=== PATIENT | male | born 1950 | race Caucasian/White ===

== ENCOUNTER 2022-03-18 13:56 | Outpatient (CLI) | payer MEDICARE, SELFPAY ==
--- NOTE | ~2022-03-18 | US_ITS ---
US arterial ankle brachial ind INDICATION: Peripheral vascular disease TECHNIQUE: Segmental pressures and plethysmographic and Doppler waveforms of the brachial and lower e xtremity arteries were obtained. COMPARISON: None. FINDINGS: Right and left brachial artery pressures of 157 mm Hg and 148 mm Hg, respectively, are concordant (no rmal difference <= 30 mmHg). The right ankle-brachial index (SIOBHAN) is 1.04 (normal >= 0.9-1.0). The right great toe-brachial index (TBI) is 0.85 (normal >= 0.60). The left SIOBHAN is 1.02. The left TBI is 0.99. IMPRESSION: 1. Normal ankle-brachial indices. Reviewed, dictated and finalized at location A.
== END 2022-03-18 13:57 | disposition home or self-care (01) ==
PROVIDERS: PCP Physician Assistant; Visit Provider Physician Assistant
DX: I73.9 Peripheral vascular disease, unspecified (principal)
CPT/HCPCS: 93922

== ENCOUNTER 2023-03-10 10:57 | Outpatient (CLI) | payer MEDICARE, SELFPAY ==
--- NOTE | ~2023-03-10 | XR_ITS ---
Left Knee Technique: AP, lateral, and sunrise views were obtained. Clinical History: Pain Findings: No fracture or dislocation is seen. Osseous alignment is anatomic. There is mild tricompart mental degenerative change. Soft tissues are unremarkable. No joint effusion is seen. Impression: Mild tricompartmental degenerative change. Reviewed, dictated and finalized at [facility]. Impression: Mild tricompartmental degenerative change.
--- NOTE | ~2023-03-10 | XR_ITS ---
Right Knee Technique: AP, lateral, and sunrise views were obtained. Clinical History: Osteoarthritis Findings: No fracture or dislocation is seen. Osseous alignment is anatomic. There is mild to moderat e tricompartmental degenerative spurring. Soft tissues are unremarkable. No joint effusion is seen. Impression: Mild to moderate tricompartmental degenerative change. Reviewed, dictated and finalized at location . Impression: Mild to moderate tricompartmental degenerative change.
== END 2023-03-10 10:58 | disposition home or self-care (01) ==
PROVIDERS: PCP Physician Assistant; Visit Provider Physician Assistant
DX: M25.662 Stiffness of left knee, not elsewhere classified (principal); M17.11 Unilateral primary osteoarthritis, right knee
CPT/HCPCS: 73562

== ENCOUNTER 2023-04-06 08:39 | Outpatient (CLI) | payer MEDICARE, SELFPAY | END 2023-04-06 08:40 | disposition home or self-care (01) | LOC: ANHAUDIO 08:40 | PROVIDERS: PCP Physician Assistant; Visit Provider Physician Assistant | DX: H90.3 Sensorineural hearing loss, bilateral (principal) | CPT/HCPCS: 92557; 92567 ==

== ENCOUNTER 2024-02-09 20:49 | Emergency (ER) | payer MEDICARE, SELFPAY ==
--- NOTE | ~2024-02-09 | XR_ITS ---
XR chest 1V portable 02/09/2024 21:15 Indication: Weakness and dyspnea Procedure: AP portable chest Comparison: No prior studies for comparison. Findings: Heart size normal. Patchy bilateral infiltrates. No significant effusion, edema or pneumoth orax. No acute osseous abnormality. Impression: 1: Patchy bilateral infiltrates, suspicious for pneumonia. Reviewed, dictated and finalized at location A. Impression: 1: Patchy bilateral infiltrates, suspicious for pneumonia.
--- NOTE | ~2024-02-09 | CT_ITS ---
EXAMINATION: CT BRAIN W/O DATE: 02/09/2024 21:34 INDICATION: Syncope TECHNIQUE: Computed tomography (CT) of the head was performed without intravenous contrast. The dose- length product was 681.00 mGy-cm. Automated exposure control and iterative reconstruction technique w ere employed. COMPARISON: No prior studies for comparison. FINDINGS: Generalized atrophy. There are scattered mild periventricular and subcortical white matter changes, most likely related to small vessel ischemic disease (microangiopathy). There is intracrania l atherosclerosis. No ventriculomegaly or midline shift. Midline sagittal images demonstrate a normal corpus callosum, c raniovertebral junction and sella turcica. Basilar cisterns are patent. Paranasal sinuses and mastoids are pneumatized. No depressed skull fractures. IMPRESSION: 1. No acute intracranial abnormality. Reviewed, dictated and finalized at location A.
[2024-02-09 20:50] VITALS: BP 102/72; PULSE 101; RESP 22; TEMP 36.4; O2SAT 95
[2024-02-09 20:55] VITALS: BP 102/72; PULSE 101; RESP 14; O2SAT 95
[2024-02-09 21:01] VITALS: BP 138/77; PULSE 96
[2024-02-09] MEDS: SODIUM CHLORIDE 0.9% IV 1,000 ML 999 ML IV CONT ×2 (21:10→22:25)
[2024-02-09 21:12] LABS: Basophils Absolute Auto 0.1 K/mm3 (0.0-0.1); Basophils Percent Auto 0.5 % (0.2-1.2); Eosinophils Absolute Auto 0.1 K/mm3 (0-0.3); Eosinophils Percent Auto 1.1 % (0-4.4); Hematocrit 44.1 % (42.0-52.0); Hemoglobin 14.6 g/dL (14.0-18.0); Immature Granulocyte Absolute 0.02 K/mm3 (0.00-0.031); Immature Granulocyte Percent A 0.2 % (0-0.5); Lymphocytes Absolute Auto 1.82 K/mm3 (0.9-3.2); Lymphocytes Percent Auto 18.7 % (18.3-44.2); Mean Corpuscular HGB Conc 33.1 g/dl (32-36); Mean Corpuscular Hemoglobin 33.2 pg (26-34); Mean Corpuscular Volume 100.2 fl (80-100); Mean Platelet Volume 10.5 fl (7.4-10.4); Monocytes Absolute Auto 0.7 K/mm3 (0.1-0.6); Monocytes Percent Auto 7.1 % (2.6-8.5); Neutrophils Percent Auto 72.4 % (45.5-73.1); Platelet Count Result 177 k/mm3 (150-375); Red Cell Distribution Width 12.5 % (11.5-14.5); White Blood Count 9.7 K/mm3 (4.5-10.0)
[2024-02-09 21:22] LABS: Lactic Acid Reflex 1.2 mmol/L (0.7-2.0)
[2024-02-09 21:23] LABS: Alanine Aminotransferase 28 U/L (6-50); Alkaline Phosphatase 78 U/L (38-126); Anion Gap 4 mmol/L (4-12); Aspartate Amino Transferase 31 U/L (17-59); Bilirubin,Total 0.5 mg/dL (0.2-1.3); Blood Urea Nitrogen 24 mg/dL (9-20); Calcium 9.2 mg/dL (8.4-10.2); Carbon Dioxide 29 mmol/L (22-30); Chloride 103 mmol/L (98-107); Estimated CRCL calculation 74 ml/min; Estimated Glomerular Filt Rate > 60; Glucose 183 mg/dL (65-110); Magnesium 1.9 mg/dL (1.6-2.3); Potassium 3.8 mmol/L (3.4-5.0); Sodium 136 mmol/L (137-145)
[2024-02-09 21:24] LABS: Prothrombin Time 13.1 Seconds (11.1-14.7)
[2024-02-09 21:25] LABS: Partial Thromboplastin Time 25.2 Seconds (22.3-36.8)
[2024-02-09 21:35] LABS: Troponin I < 0.012 ng/mL (0.000-0.034)
[2024-02-09 22:05] VITALS: BP 139/69; PULSE 94
[2024-02-09 22:06] VITALS: BP 139/71; PULSE 100
[2024-02-09 23:30] LABS: Appearance Urine Clear (Clear); Bacteria Urine None Seen /hpf; Bilirubin Urine Negative (Negative); Blood Urine Non-Hemolyzed Trace (Negative); Color Urine Yellow (Yellow); Glucose Urine UA Negative (Negative); Hyaline Casts Urine Present /lpf; Ketones Urine Trace mg/dL (Negative); Leukocyte Esterase Ur Negative LEU/UL (Negative); Need Manual Microscopic Reviewed; Nitrate Urine Negative (Negative); Protein Urine 1+ mg/dL (Negative); Specific Grav Ur 1.022 (1.001-1.035); Squamous Epithelial Cell Urine None Seen /hpf (Few); WBC Urine 0-5 /hpf (0-3); pH Urine 5.5 (5.0-9.0)
[2024-02-09 23:32] LABS: Add Urine Microscopic? YES
--- NOTE | 2024-02-10 00:27 | ED.GENADULT ---
HPI - General Adult General Chief complaint: Neuro Symptoms/Deficit Stated complaint: loss of vision Time Seen by Provider: 02/09/24 21:00 History of Present Illness HPI narrative: Patient is a 73-year-old gentleman who presents emergency department with chief complaint of near-syncope. The patient reports he was sitting at the table started feeling lightheaded and noticed that his vision became dark and both of his eyes. The patient reports no focal deficit but reports he has felt very thirsty and was diaphoretic when this occurred. The patient reports he has not really been drinking well patient reports that now his symptoms have completely resolved the patient denies chest pain denies shortness of breath Related Data Home Medications Medication Instructions Recorded Confirmed aspirin 81 mg tablet,delayed 81 mg PO DAILY 12/09/19 12/24/23 release (Adult Low Dose Aspirin) Allergies Allergy/AdvReac Type Severity Reaction Status Date / Time No Known Allergies Allergy Verified 12/24/23 09:19 Review of Systems Review of Systems: A 10 system review of systems was completed on the patient and is negative except for what is stated in the HPI. Nursing and ancillary documentation was reviewed. [facility] Family History Family History Sibling Family history of glaucoma Mother Family history of Alzheimer's disease Father Family history of lung cancer Other Family history of osteoporosis Social History Social History Smoking packs per day: 0.75 Smoking cigarettes per day: 15.0 Years smoked: 12 Smoking pack-years: 9.00 Smoking status: Former smoker Second hand tobacco smoke exposure: No Smoking end date: 11/02/91 Alcohol intake: current Drinks per week: 1 Alcohol use details: occasionally Substance use: never Lack of Transportation: No Lack of Food: Never True Current Housing: I Have Housing Concerned About Future Housing: No Difficulty Paying Gas/Electric Bills: No Difficulty Paying for Meds: No Currently Unemployed: No Education: Bachelor's Degree Difficulty w/ Childcare or Family Care: No Exam Narrative: GENERAL: Well-appearing, well-nourished, and in no acute distress. HEAD: Normocephalic, atraumatic. EYES: PERRLA and EOMI. ENT: Nares clear, no rhinorrhea or epistaxis. Mucous membranes moist. NECK: Supple. CHEST: Clear to auscultation. No respiratory distress. HEART: Regular rate and rhythm. No murmur heard. Normal peripheral pulses. ABDOMEN: Soft, nontender, nondistended, normal active bowel sounds. EXTREMITIES: Normal range of motion. No edema. SKIN: Warm, dry, no rash. NEURO: No focal deficits. Alert and oriented x3. PSYCH: Normal mood and affect. Course Vital Signs Vital signs: Vital Signs Temperature 36.4 C L 02/09/24 20:50 Pulse Rate 101 H 02/09/24 20:50 Respiratory Rate 22 H 02/09/24 20:50 Blood Pressure 102/72 02/09/24 20:50 Pulse Oximetry 95 02/09/24 20:50 Oxygen Delivery Room Air 02/09/24 20:50 Temperature 36.4 C L 02/09/24 20:50 Pulse Rate 100 02/09/24 22:06 Respiratory Rate 14 02/09/24 20:55 Blood Pressure 139/71 02/09/24 22:06 Pulse Oximetry 95 02/09/24 20:55 Oxygen Delivery Room Air 02/09/24 20:50 Medical Decision Making [facility] Narrative Medical decision making narrative: Attenuation acute ischemic changes with Differential diagnosis includes dysrhythmia, electrolyte abnormality dehydration, ACS, CVA, CT head showed no acute abnormality chest x-ray showed no findings. Urinalysis showed no evidence UTI electrolytes have showed glucose 183 CBC was within normal limits. Troponin was negative lactic acid was negative The patient has been observed on the monitor in the emergency department without this med. The patient received 2 L of normal saline boluses a
[2024-02-10 00:53] VITALS: BP 133/69; PULSE 74; RESP 16; O2SAT 98
== END 2024-02-10 00:53 | disposition home or self-care (01) ==
PROVIDERS: Emergency Provider Emergency Medicine; PCP Physician Assistant
DX: R55 Syncope and collapse (principal); Z87.891 Personal history of nicotine dependence; Z79.82 Long term (current) use of aspirin
CPT/HCPCS: 36415; 70450; 71045; 80053; 81001; 83605; 83735; 84484; 85025; 85610; 85730; 96360; 96361; 99284; J7030

== ENCOUNTER 2024-11-16 09:46 | Outpatient (CLI) | payer MEDICARE, SELFPAY ==
--- NOTE | 2024-11-16 10:30 | NEURO_ITS ---
Impression: # Complains of numbness of right of hand. Non-diabetic. ? # severe right Carpal Tunnel Syndrome. ? # No ulnar neuropathy. ? # Needle/EMG exam mildly abnormal in right APB. Nerve Conduction Studies Anti Sensory Summary Table ?Stim Site NR Peak (ms) P-T Amp (?V) Site1 Site2 Delta-P (ms) Dist (cm) Paulino (m/s) Right Median Anti Sensory (2-3nd Digit) Wrist ? 5.6 29.1 Wrist 2-3nd Digit 5.6 14.0 25 Wrist ? 6.7 17.4 Wrist 2-3nd Digit 5.6 14.0 25 Right Radial Anti Sensory (Base 1st Digit) Wrist ? 2.3 14.2 Wrist Base 1st Digit 2.3 0.0 Right Ulnar Anti Sensory (5th Digit) Wrist ? 2.5 28.3 Wrist 5th Digit 2.5 14.0 56 Motor Summary Table ?Stim Site NR Onset (ms) O-P Amp (mV) Site1 Site2 Delta-0 (ms) Dist (cm) Paulino (m/s) Right Median Motor (Abd Poll Brev) Wrist ? 6.3 1.3 Elbow Wrist 6.0 30.0 50 Elbow ? 12.3 0.8 Right Ulnar Motor (Abd Dig Minimi) Wrist ? 2.7 5.5 A Elbow Wrist 5.4 32.0 59 A Elbow ? 8.1 3.6 F Wave Studies ?NR F-Lat (ms) L-R F-Lat (ms) Right Median (Mrkrs) (Abd Poll Brev) ? 31.29 Right Ulnar (Mrkrs) (Abd Dig Min) ? 29.73 EMG ?Side Muscle Nerve Root Ins Act Fibs Amp Dur Recrt Comment Right 1stDorInt Ulnar C8-T1 Nml Nml Nml Nml Nml Right Ext Indicis Radial (Post Int) C7-8 Nml Nml Nml Nml Nml Right Ext Digitorum Radial (Post Int) C7-8 Nml Nml Nml Nml Nml Right BrachioRad Radial C5-6 Nml Nml Nml Nml Nml Right PronatorTeres Median C6-7 Nml Nml Nml Nml Nml Right Abd Poll Brev Median C8-T1 Nml Nml Nml >12ms +1 Right ABD Dig Min Ulnar C8-T1 Nml Nml Nml Nml Nml MTDD
== END 2024-11-16 09:47 | disposition home or self-care (01) ==
PROVIDERS: PCP Internal Medicine; Visit Provider Internal Medicine
DX: G56.01 Carpal tunnel syndrome, right upper limb (principal)
CPT/HCPCS: 95886; 95909

== ENCOUNTER 2025-01-26 08:13 | Day surgery (SDC) | payer MEDICARE, SELFPAY ==
[2025-01-12 09:20] VITALS: BMI 32.8
--- NOTE | 2025-01-26 07:04 | WPDHPUPDATE1 ---
History and Physical Update Update Date/Time: 01/26/25 07:04 Patient seen and examined in pre-operative holding area. No interval change in medical history or symptoms. Patient recalls previous discussion of benefits and alternatives to procedure. Continues to desire to proceed with right endoscopic possible open carpal tunnel release. Reviewed procedure, post-op expectations and risks including but not limited to bleeding, infection, injury to tendon/nerve/vessel, decreased hand function, stiffness, RSD, no change or worsening of symptoms. I discussed the possible use of assistants and their participation in the case. Patient stated understanding and signed the consent form wishing to proceed.
--- NOTE | 2025-01-26 07:05 | W.PM.PROC2 ---
Procedure Note - Detailed Date of Procedure 01/26/25 Pre-op Diagnosis Right Carpal Tunnel Syndrome Post-op Diagnosis Same Procedure Performed right ectr Surgeon Tracy Selby MD Associate Financial Advisor paco inman pa-c Anesthesia MAC Description of Procedure INFORMED CONSENT: The patient was seen and examined and marked in the pre-op area.? The patient signed the consent form. PROCEDURE IN DETAIL:The patient taken back to OR on the stretcher in supine position. Time out performed with anesthesia, surgeon and staff agreeing on patient's name site and surgery to be performed SCDs were placed on the lower extremities and inflated. A tourniquet was placed on {right/} upper extremity and antibiotics given IV After anesthesia administered sedation I injected {4}cc 1%lido with epi and 0.5% marcaine plain at the operative site The?{right upper extremity}?was prepped and draped in sterile fashion the??{right upper extremity} was? exsanguinated with Esmarch bandage and tourniquet inflated to 250mmHg I made a transverse incision in the {right} volar distal wrist crease through skin and dermis with 15 blade scalpel.? Littler scissors spread down to antebrachial fascia. A small incision was made in antebrachial fascia allowing access to Carpal tunnel. I proceeded with sequential dilation staying in line with the ring finger and hugging the hook of the hamate.? I then used the synovial elevator to free any adhesions from the underside of the transverse carpal ligament. Next I was able to insert the Microaire endoscopic carpal tunnel device with direct visualization of the transverse fibers on the monitor and proceeded with complete segmental retrograde release of the ligament in its entirety.? I irrigated with normal saline and closed with 4-0 monocryl for dermis and subcuticular closure. A dressing of Dermabond, 4x4, sydnee, and a volar splint was applied for patient safety, security, and comfort and secured with an pedro pablo bandage after the tourniquet was let down noting the hand was warm and well perfused. The patient was then awaken from anesthesia and transferred to the recovery room in stable condition.? Complications - none EBL- 0cc Disposition - home in stable condition Paco Inman pa-c was essential for positioning, retraction, closure and dressing placement [facility] Billing Surgery - Charge Forward: Surgery Billing ([id number] for paco)
[2025-01-26 09:25] VITALS: BP 172/105; PULSE 81; RESP 14; TEMP 36.8; O2SAT 99
--- OUTSIDE RECORDS SUMMARY | 2025-01-26 09:33 | XMS_ITS | Clinical Summary ---
Author Organization [facility] Address [address] [place] [address] Care Team Providers Care Food Service Employee Name Role Phone Deric Stuart MD Primary Care Provider Unavail able Source Comments [facility],non-owned Affiliates and Associated Physician Practices is amultiple site organization consisting of ambulatory clinics and hospital sitesin [place], [place], [place] and [place]. This disclosure is being madepursuant to the Care Everywhere program and may not contain all information available regarding this patient. Last updated 18.[facility] Allergies No known active allergies Medications * Be aware that medications may not be up to date on this document. Alwaysverify current medications with the patient. Medication Sig Dispensed Refills Start Date End Date Status FINASTERIDE PO Active tamsulosin (FLOMAX) 0.4 MG capsule Take 0.4 mg by mouth once daily Take 30 minutes after a meal at the same time each day. Active lovastatin (MEVACOR) 10 MG tablet Take 10 mg by mouth at bedtime Active losartan (COZAAR) 25 MG tablet Take 25 mg by mouth once daily Active Aspirin (ASPIR-81 PO) Active albuterol HFA (VENTOLIN HFA) 108 (90 BASE) MCG/ACT inhaler Inhale 2 Puffs by mouth every 6 hours as needed for Wheezing or Cough 1 Inhaler 02/25/2017 Active fluticasone propionate (FLONASE ALLERGY RELIEF) 50 MCG/ACT nasal sprayIndications:Thee al Signs and Symptoms [employer] [place] 2 Sprays into each nostril once daily Reasons: Signs and Symptoms of Nose Diseases 1 Bottle 02/25/2017 Active Active Problems No known active problems Social History Tobacco Use Types Packs/Day Years Used Date Smoking Tobacco: Former Sex and Gender Information Value Date Recorded Sex Assigned at Not on file Gender Identity Not on file Sexual Orientation Not on file Last Filed Vital Signs Vital Sign Reading Time Taken Comments Blood Pressure 126/78 02/25/2017 11:07 AM CDT Pulse 79 02/25/2017 11:07 AM CDT Temperature 36.9 C (98.4 F) 02/25/2017 11:07 AM CDT Respiratory Rate 16 02/25/2017 11:07 AM CDT Oxygen Saturation 96% 02/25/2017 11:07 AM CDT Inhaled Oxygen Concentration - - Weight 102.1 kg (225 lb) 02/25/2017 11:07 AM CDT Height 180.3 cm (5' 11 ) 02/25/2017 11:07 AM CDT Body Mass Index 31.38 02/25/2017 11:07 AM CDT Plan of Treatment Health Maintenance Due Date Last Done Comments MEDICARE AWV 12 MONTHS 1950 HEPATITIS C SCREENING 06/19/1966 DTAP/TDAP/TD VACCINES (1 - Tdap) 1967 PNEUMOCOCCAL VACCINE 50+ (1 of 1 - PCV) 1998 ZOSTER VACCINE (1 of 2) 1998 Respiratory Syncytial Virus (RSV) Vaccine Pt: or over 60 yrs (1 - 1-dose 75+ series) 2023 COVID-19 VACCINE ( - 2023-2 5 season) 2024 INFLUENZA VACCINE (#1) 2024 DEPRESSION SCREENING 11/02/2024 HEPATITIS B VACCINE Aged Out No longe r eligible based on patient's age to complete this topic HIB VACCINE Aged Out No longer eligi ble based on patient's age to complete this topic HPV VACCINE Aged Out No longer eligi ble based on patient's age to complete this topic MENINGOCOCCAL (Group B) VACC INE SHARED DECISION-MAKING Aged Out No longer eligibl e based on patient's age to complete this topic MENINGOCOCCAL GROUPS A/C/Y/W VACCINE Aged Out No longer eligible b ased on patient's age to complete this topic Care Teams Food Service Employee Relationship Specialty Start Date End Date Deric Stuart MD PCP - General Internal Medicine 02/25/17
--- OUTSIDE RECORDS SUMMARY | 2025-01-26 09:33 | XMS_ITS | Continuity of Care Document ---
Author Organization [facility] Address [address] [place] [address] Phone Care Team Providers Care Trade Promotion Analyst Name Role Phone Haseeb Garg MD Unavailable Unavailable Procedures Procedure Date INJ SPINE LUM/SAC W/ IMAGING GUIDANCE Ju SURGICAL TRAY LOW OSMOLAR CONTRAST (200 TO 299 MG IODI NE) DEPO-MEDROL 80MG MRI, SPINAL CANAL W/O CONTRAST MRI, LUMBAR SPINE W/O CONTRAST Advance Directives Directive Yes / No Effective Date File Name No Information Encounters Encounter Description Practice Location Reason(s) For Visit Diagnoses Date Provider Providers Copied on Encounter [facility], [address], [place], [place], [id number], tel:[phone] [facility] No Information Britany Membreno. [address], [place], [id number], [place]. tel:[phone] Referring Provider: [address], [place], [address]. tel:[phone] [facility], [address], [place], [place], [id number], tel:[phone] [facility] No Information Britany Membreno. [address], [place], [place], [id number], [place]. tel:[phone] Referring Provider: [address], [place], [address]. tel:[phone] Family History Family Member Type Diagnosis Age At Onset No Information Payers Payer name Insurance type Covered alliance party ID Authoriza tion(s) [employer] MDCR PPO PLANS MEBNYBLEONARD [id number] Social History Type Description Quantity Date Captured Comments Sex Male Smoking Status No Information Chief Complaint And Reason For Visit No Information Reason For Referral Reason For Referral No Information History Of Present Illness Encounter Date Complaint History Of Prese nt Illness No Information Functional Status Date Functional Assessmen t No Information Instructions Date Instruction Additional Infor mation No Information Assessments Type Assessment Date No Information Patient Care Teams Name Effective Dates (start - stop) Status Members No Information
--- OUTSIDE RECORDS SUMMARY | 2025-01-26 09:33 | XMS_ITS | Clinical Summary ---
Author Organization [facility] Address [address] [place] [address] Care Team Providers Care Linux Vmware Administrator Name Role Phone Unavailable Primary Care Provider Unavailabl e Social History Tobacco Use Types Packs/Day Years Used Date Smoking Tobacco: Never Assessed Sex and Gender Information Value Date Recorded Sex Assigned at Not on file Legal Sex Male 7:31 PM CDT Gender Identity Not on file Sexual Orientation Not on file Plan of Treatment Health Maintenance Due Date Last Done Comments Hepatitis C 1966 DTaP, Tdap and Td Vaccines ( 1 - Tdap) 1967 Zoster Vaccines (1 of 2) 1998 Pneumococcal Vaccine: 65+ Ye ars (1 of 1 - PCV) 2013 RSV Immunization or 60+ Years (1 - 1-dose 75+ series) 2023 COVID-19 Vaccine ( - 2023-2 5 season) 2024 Influenza Adult (#1) 2024 Meningococcal B Vaccine Aged Out No l onger eligible based on patient's age to complete this topic Meningococcal Vaccine Aged Out No wanda theodore eligible based on patient's age to complete this topic RSV Immunizations Under 20 Months Aged Out No longer eligible based on patient's age to complete this topic
[2025-01-26] MEDS: LACTATED RINGERS 1,000 ML 30 ML IV CONT (09:43)
--- NOTE | 2025-01-26 10:15 | WPDANESEPPF ---
Anes - Initial Pre Proc Eval Procedure: Operation Date: 01/26/25 10:45 Proposed Procedures p Right Endoscopic Carpal Tunnel Release, Possible Open Carpal Tunnel Release - Tracy Selby MD Date/Time: 01/26/25 10:15 Surgeon: Tracy Selby MD Pre Op Diagnosis: Right Carpal Tunnel Syndrome Patient Data Age: 74 Gender: M Height: 1.78 m Weight: 101.25 kg Last Vital Signs Temp 36.8 C 01/26/25 09:25 Pulse 81 01/26/25 09:25 Resp 14 01/26/25 09:25 BP 172/105 H 01/26/25 09:25 Pulse Ox 99 01/26/25 09:25 O2 Del Method Room Air 01/26/25 09:25 Allergies Allergy/AdvReac Type Severity Reaction Status Date / Time No Known Allergies Allergy Verified 01/26/25 09:20 Home Medications ?Medication ?Instructions ?Recorded ?Confirmed ?Type aspirin 81 mg tablet,delayed 81 mg PO DAILY 12/09/19 01/26/25 History release (Adult Low Dose Aspirin) sildenafil 100 mg tablet 100 mg PO DAILY PRN sexual 12/24/23 01/12/25 Rx activity #30 tabs finasteride 5 mg tablet See Rx Instructions .Route 06/06/24 01/26/25 Rx .COMPLEX #90 tabs multivitamin (Daily Multi-Vitamin 1 tablet PO DAILY 07/26/24 01/26/25 History tablet) tamsulosin 0.4 mg capsule See Rx Instructions .Route 08/26/24 01/26/25 Rx .COMPLEX #90 caps losartan 100 mg tablet 100 mg PO DAILY #90 tabs 11/21/24 01/26/25 Rx lovastatin 10 mg tablet See Rx Instructions .Route 12/07/24 01/26/25 Rx .COMPLEX #90 tabs tramadol 50 mg tablet 50 mg PO Q6H PRN pain #12 tabs 01/26/25 Rx Patient hx anesthesia problems: none Family hx anesthesia problems: none Results Review: All pre-operative results and documents have been reviewed as part of the pre-operative evaluation. [facility] Past Medical History Medical History (Updated 01/26/25 @ 10:15 by Haseeb Brown MD) Overweight (BMI 25.0-29.9) Hyperlipidemia Hypertension Family History Family History Sibling Family history of glaucoma Mother Family history of Alzheimer's disease Father Family history of lung cancer Other Family history of osteoporosis Social History Social History Smoking packs per day: 0.75 Smoking cigarettes per day: 15.0 Years smoked: 12 Smoking pack-years: 9.00 Smoking status: Former smoker Second hand tobacco smoke exposure: No Smoking end date: 11/02/91 Alcohol intake: current Drinks per week: 1 Alcohol use details: occasionally Substance use: never Substance use type: does not use Lack of Transportation: No Lack of Food: Never True Current Housing: I Have Housing Concerned About Future Housing: No Difficulty Paying Gas/Electric Bills: No Difficulty Paying for Meds: No Currently Unemployed: No Education: Bachelor's Degree Difficulty w/ Childcare or Family Care: No Living arrangements: with family Spiritual care concerns: No Anes - Eval Final PreProcedure Day of Procedure 01/26/25 10:15 Patient weight: obese Heart: regular rate and rhythm Lungs: clear to auscultation Airway: Mallampati scale class II Neurological: alert and oriented Last oral intake: >/= 8 hours ASA classification: III Emergent: no Anesthetic plan: proceed Anesthesia type and monitoring: general GIVS and standard monitoring Results Review: All pre-operative results and documents have been reviewed as part of the pre-operative evaluation. Informed Consent: The patient's anesthetic plan and its attendant risks and benefits were discussed with the patient/family/POA. Questions were solicited and answers provided to the satisfaction of the patient/family/POA.
[2025-01-26] MEDS: ceFAZolin SODIUM 2 GM/20 ML SW SYRINGE IV PUSH (10:23)
[2025-01-26] MEDS: BUPIVACAINE/EPINEPHRINE 0.5% 10 ML VIAL 5 ML INFILTRATE (10:28)
[2025-01-26] MEDS: LIDOCAINE 1% LOCAL INJ 20 ML VIAL 5 ML INFILTRATE (10:28)
[2025-01-26 10:42] VITALS: BP 147/81; PULSE 83; RESP 15; O2SAT 99
[2025-01-26 10:52] VITALS: BP 156/79; PULSE 81; RESP 16; O2SAT 96
[2025-01-26 11:02] VITALS: BP 148/90; PULSE 74; RESP 16; O2SAT 98
--- NOTE | 2025-01-26 11:32 | WPDANESPN ---
Anes - Prog Note Post-Op Date/Time: 01/26/25 11:32 Cardiovascular status: normal Respiratory status: normal Airway patency: baseline Mental status: baseline Post-Op hydration status: normal Vital Signs: Last Vital Signs Temp 36.8 C 01/26/25 09:25 Pulse 74 01/26/25 11:02 Resp 16 01/26/25 11:02 BP 148/90 H 01/26/25 11:02 Pulse Ox 98 01/26/25 11:02 O2 Del Method Room Air 01/26/25 11:02 Pain Score (VAS): 0/10 I/O: Intake & Output 01/25/25 01/26/25 01/26/25 23:59 07:59 15:59 Intake Total 600 Balance 600 Patient Feedback: Patient satisfied with anesthetic care.
== END 2025-01-26 11:25 | disposition home or self-care (01) ==
LOC: ASC 09:01
PROVIDERS: PCP Internal Medicine; Visit Provider Plastic Surgery
PROC: 01N54ZZ Release Median Nerve, Percutaneous Endoscopic Approach (ICD-10-PCS; CPT 29848; principal; 2025-01-26 10:45)
DX: G56.01 Carpal tunnel syndrome, right upper limb (principal)
CPT/HCPCS: 29848